=== PATIENT | male | born 1995 | race African-American/Black ===

== ENCOUNTER 2022-06-10 19:47 | Emergency (ER) | payer MEDICAID, OTHER ==
[~2022-06-10] VITALS: Ht 185.4 cm; Wt 82.0 kg
[2022-06-10] MEDS ORDERED: LORAZEPAM 1MG TABLET PO ONE ×2 (21:30→23:15)
[2022-06-11] MEDS ORDERED: OLANZAPINE 5MG TABLET PO SCH (00:45)
[2022-06-11] MEDS ORDERED: HALOPERIDOL LACTATE 5MG/ML VIAL IM ONE (02:30)
[2022-06-11] MEDS ORDERED: ACETAMINOPHEN 325MG TABLET PO PRN (03:15)
[2022-06-11 05:22] LABS: CHLORIDE 106 mEq/L (98-107)
[2022-06-11 05:31] LABS: ETHANOL BLOOD < 10 mg/dL
[2022-06-11 05:32] LABS: BASOPHILS % 0.5 % (0.0-2.0); EOSINOPHILS % 1.6 % (0.0-5.0); HEMATOCRIT. 39.6 % (42.0-52.0); HEMOGLOBIN. 13.5 g/dL (14.0-18.0); LYMPHOCYTES % 14.9 % (20.0-50.0); MEAN CORPUSCULAR HEMOGLOBIN 28.7 pg (28.0-32.0); MEAN CORPUSCULAR VOLUME 84.3 fL (80.0-94.0); MEAN PLATELET VOLUME 8.3 fl (7.4-10.4); MONOCYTES % 9.8 % (2.0-8.0); NEUTROPHILS % 73.2 % (40.0-76.0); PLATELET 285 x1000/uL (130-400); RED CELL DISTRIBUTION WIDTH 13.6 % (11.6-14.6)
[2022-06-11 10:34] VITALS: BP 136/92
== END 2022-06-11 10:35 | disposition home or self-care (01) ==
LOC: ER 19:47
DX: F23 Brief psychotic disorder (principal); F12.10 Cannabis abuse, uncomplicated
CPT/HCPCS: 36415; 71045; 80053; 80307; 80320; 80329; 85025; 96372; 99284; J1630; G0480

== ENCOUNTER 2023-09-16 09:51 | Emergency (ER) | payer OTHER ==
[~2023-09-16] VITALS: Ht 180.3 cm; Wt 91.0 kg
[2023-09-16 09:54] VITALS: O2SAT 98
[2023-09-16] MEDS ORDERED: IBUP-2028 MT (11:24)
[2023-09-16] MEDS ORDERED: TOPUD MT (11:24)
[2023-09-16] MEDS: IBUPROFEN 600MG TABLET PO ONE (11:52)
[2023-09-16 12:36] VITALS: BP 128/82; PULSE 74; RESP 18; TEMP 98.1
== END 2023-09-16 12:37 | disposition home or self-care (01) ==
LOC: ER 09:51
DX: M25.572 Pain in left ankle and joints of left foot (principal); F12.10 Cannabis abuse, uncomplicated
CPT/HCPCS: 73610; 73630; 99284